=== PATIENT | female | born 1985 | race American Indian/Alaskan Native ===

== ENCOUNTER 2020-08-08 12:04 | Emergency (ER) | payer MEDICAID ==
[2020-08-08 12:17] VITALS: BP 127/88
[2020-08-08 13:43] LABS: Hemoglobin 12.5 gm/dl (10.1-14.3); Mean Corpuscular HGB Conc 34 % (30-34); Mean Corpuscular Volume 95 fl (79-97); Platelet Count 300 K/mm3 (140-440); Red Blood Count 3.89 M/mm3 (3.65-5.03); Red Cell Distribution Width 14.5 % (13.2-15.2)
[2020-08-08 13:59] LABS: Blood Urea Nitrogen 7 mg/dL (7-17); Calcium 9.2 mg/dL (8.4-10.2); Hemolysis Index 6
[2020-08-08 14:02] LABS: BUN/Creatinine Ratio 12
--- NOTE | 2020-08-08 14:13 | Emergency Department Report ---
ED GI Bleed HPI - General Chief complaint: GI Bleed Stated complaint: BLEEDING FROM RECTUM Time Seen by Provider: 08/08/20 13:54 Source: patient Mode of arrival: Ambulatory Limitations: No Limitations - History of Present Illness Initial comments: Patient is a 34-year-old F [place] female who has a history of some cosmetic abdominal surgeries x2 one vaginal delivery who is complaining of some rectal bleeding for the past 2 days. She states proximally 3 to 4 days ago she felt something moving in her abdomen as though she had gas. Patient started taking some Tums. 2 days ago the patient during a bowel movement had a large clot passed. She is continued to have some bleeding with bowel movements. She has no abdominal pain nausea vomiting fevers chills or pain with bowel movements. Patient did take a picture clot of blood - Related Data Previous Rx's Medication Instructions Recorded Last Taken Type Hydrocort/Pramoxine [Proctofoam-Hc] 1 applicatio OR BID 5 Days can 08/08/20 Unknown Rx Allergies Allergy/AdvReac Type Severity Reaction Status Date / Time No Known Allergies Allergy Unverified 08/08/20 12:14 ED Review of Systems ROS: Stated complaint: BLEEDING FROM RECTUM Other details as noted in HPI Comment: All other systems reviewed and negative ED Past Medical Hx - Past Medical History Previous Medical History?: No - Surgical History Past Surgical History?: Yes Additional Surgical History: tummy tuck, liposuction, x 2 - Social History Smoking Status: Current Every Day Smoker Substance Use Type: Alcohol - Medications Home Medications: Home Medications Medication Instructions Recorded Confirmed Last Taken Type Hydrocort/Pramoxine [Proctofoam-Hc] 1 applicatio OR BID 5 Days can 08/08/20 Unknown Rx ED Physical Exam - General Limitations: No Limitations General appearance: alert, in no apparent distress - Head Head exam: Present: atraumatic, normocephalic - Eye Eye exam: Present: normal appearance - ENT ENT exam: Present: mucous membranes moist - Neck Neck exam: Present: normal inspection - Respiratory Respiratory exam: Present: normal lung sounds bilaterally. Absent: respiratory distress, wheezes, rales - Cardiovascular Cardiovascular Exam: Present: regular rate, normal rhythm, normal heart sounds. Absent: systolic murmur, diastolic murmur, rubs, gallop - GI/Abdominal GI/Abdominal exam: Present: soft, normal bowel sounds. Absent: distended, tenderness, guarding, rebound - Rectal Rectal exam: Present: normal inspection, normal rectal tone, heme (-) stool, other (Possible fleshy mass just within the anal opening). Absent: black stool (Normal color stool), bloody stool - Extremities Exam Extremities exam: Present: normal inspection - Back Exam Back exam: Present: normal inspection - Neurological Exam Neurological exam: Present: alert, oriented X3 - Psychiatric Psychiatric exam: Present: normal affect, normal mood - Skin Skin exam: Present: warm, dry, intact, normal color. Absent: rash ED Course Vital Signs 08/08/20 12:14 Temperature 98.2 F Pulse Rate 100 H Respiratory 20 Rate Blood Pressure 127/88 O2 Sat by Pulse 99 Oximetry ED Medical Decision Making - Lab Data Result diagrams: 08/08/20 13:06 08/08/20 13:06 - Medical Decision Making Patient's hemoglobin is within normal limits. She likely has a internal hemorrhoid Critical care attestation.: If time is entered above; I have spent that time in minutes in the direct care of this critically ill patient, excluding procedure time. ED Disposition Clinical Impression: GI bleed, Internal hemorrhoid, bleeding Disposition: DC-01 TO HOME OR SELFCARE Is pt being admited?: No Does the pt Need Aspirin: No Condition: Stable Instructions: Hemorrhoids (ED), Rectal Bleeding (ED) Prescriptions: Hydrocort/Pramoxine [Proctofoam-Hc] 1 applicatio OR BID 5 Days can Referrals: [facility] [Provider Group] - 3-5 Days Time of Disposition: 14:55
[2020-08-08 14:26] LABS: Band Neutrophils # (Manual) 0.1 K/mm3; Basophils % (Manual) 0 % (0.0-1.8); Platelet Estimate Consistent w Auto; RBC Morphology Normal; Total Cells Counted 100
== END 2020-08-08 15:37 | disposition home or self-care (01) ==
LOC: ED 12:04
DX: K64.8 Other hemorrhoids (principal); K92.2 Gastrointestinal hemorrhage, unspecified; F17.200 Nicotine dependence, unspecified, uncomplicated; Z98.890 Other specified postprocedural states; Z79.899 Other long term (current) drug therapy
CPT/HCPCS: 36415; 80048; 85007; 85025